=== PATIENT | male | born 1975 | race Asian ===

== ENCOUNTER 2017-12-14 20:03 | Emergency (ER) | payer MEDICAID ==
[~2017-12-14] VITALS: Ht 180.3 cm; Wt 178.0 kg
[~2017-12-14 20:03] MED LIST: ALBU8.5H8 INH; ASPI-650 PO; CEFD300C37 PO; CIPR500T3 PO; FLUT16SP NAS; NAPR220C2 PO; ONDA4TAB7 PO; OXYC-302 PO; PHEN-418 PO; PRED20TA PO
[2017-12-14 20:39] LABS: BASOPHILS # (AUTO) 0.13 x10^3/uL (0-0.1); BASOPHILS % (AUTO) 1 % (0-1); EOSINOPHILS # (AUTO) 0.09 x10^3/uL (0-0.4); EOSINOPHILS % (AUTO) 1 % (1-7); LYMPHOCYTES # (AUTO) 1.82 x10^3/uL (1-3.4); LYMPHOCYTES % (AUTO) 17 % (22-44); MD NO; MEAN CORPUSCULAR HGB CONC 34.9 g/dL (33.2-36.2); MEAN CORPUSCULAR VOLUME 88.7 fL (81-97); MEAN PLATELET VOLUME 7.5 fL (7.4-10.4); MONOCYTES # (AUTO) 0.68 x10^3/uL (0.2-0.8); MONOCYTES % (AUTO) 6 % (2-9); NEUTROPHILS # (AUTO) 8.14 x10^3/uL (1.8-6.8); NEUTROPHILS % (AUTO) 75 % (42-75); PLATELET COUNT 206 x10^3/uL (130-400); RED BLOOD COUNT 5.09 x10^6/uL (4.38-5.82); RED CELL DISTRIBUTION WIDTH 12.9 % (9.4-14.8)
[2017-12-14 20:50] LABS: ALANINE AMINOTRANSFERASE 35 U/L (12-78); ALBUMIN 3.8 g/dL (3.4-5.0); ANION GAP 11 mmol/L (5-15); CALCIUM 8.3 mg/dL (8.5-10.1); CHLORIDE 107 mmol/L (98-107); CREATININE 1.27 mg/dL (0.7-1.3)
[2017-12-14 20:52] LABS: MICROSCOPIC INDICATED
[2017-12-14 20:52] LABS: ALKALINE PHOSPHATASE 63 U/L (45-117); BILIRUBIN,TOTAL 0.6 mg/dL (0.2-1.0); TOTAL PROTEIN 8.1 g/dL (6.4-8.2)
[2017-12-14] MEDS ORDERED: OMNIPAQUE 350 MG/ML, 100ML BOTTLE ONE (21:00)
[2017-12-14] MEDS ORDERED: ONDANSETRON 2MG/ML, 2ML ONE (21:00)
[2017-12-14] MEDS ORDERED: ONDANSETRON 2MG/ML, 2ML IVPush ONE (21:00)
[2017-12-14] MEDS ORDERED: SODIUM CHLORIDE FLUSH 10ML SYR IVF ONE (21:00)
[2017-12-14] MEDS ORDERED: HYDROmorphone 2 MG/ML, 1ML ONE ×2 (21:01→22:07)
[2017-12-14 21:08] LABS: CULTURE INDICATED? NO
[2017-12-14] MEDS: HYDROmorphone 2 MG/ML, 1ML IVPush PRN ×2 (21:15→22:10)
[2017-12-14 22:20] VITALS: BP 187/99
[2017-12-14] MEDS ORDERED: KETOROLAC 30 MG/1 ML ONE (22:46)
[2017-12-14] MEDS ORDERED: KETOROLAC 30 MG/1 ML IVPush ONE (23:00)
== END 2017-12-14 23:10 | disposition home or self-care (01) ==
LOC: ED 22:59
DX: N23 Unspecified renal colic (principal); R31.9 Hematuria, unspecified; I25.2 Old myocardial infarction; Z87.891 Personal history of nicotine dependence
CPT/HCPCS: 36415; 74177; 80053; 81001; 83690; 85025; 96374; 96375; 96376; 99285; J1170; J1885; J2405; Q9967